=== PATIENT | female | born 1955 | race Caucasian/White ===

== ENCOUNTER 2018-04-05 09:29 | Day surgery (SDC) | payer OTHER ==
[~2018-04-05] VITALS: Ht 167.6 cm; Wt 62.1 kg
[~2018-04-05 09:29] MED LIST: INTE30I SC; OXYACE5T PO; PROM25 PO; TAMS.4ER PO
[2018-04-05] MEDS ORDERED: TECFIDERA240 MG (10:14)
== END 2018-04-05 12:03 | disposition home or self-care (01) ==
LOC: ORSCSDS 09:29
PROVIDERS: Internal Medicine Gastroenterology
PROC: 0DBL8ZX Excision of Transverse Colon, Via Natural or Artificial Opening Endoscopic, Diagnostic (ICD-10-PCS; principal; 2018-04-05 11:00)
DX: Z12.11 Encounter for screening for malignant neoplasm of colon (principal); D12.3 Benign neoplasm of transverse colon; K57.30 Diverticulosis of large intestine without perforation or abscess without bleeding; K64.8 Other hemorrhoids; K64.4 Residual hemorrhoidal skin tags; Z79.899 Other long term (current) drug therapy
CPT/HCPCS: 88305; J7120

== ENCOUNTER 2018-08-14 08:58 | Day surgery (SDC) | payer OTHER ==
[~2018-08-14] VITALS: Ht 167.6 cm; Wt 62.8 kg
[~2018-08-14 08:58] MED LIST changes: +CHOL10002 PO; +MULTI VITAMIN1 EACH PO; +TECFIDERA240 MG; +TECFIDERA240 MG PO
== END 2018-08-14 16:05 | disposition home or self-care (01) ==
LOC: ORSCSDS 08:58
PROVIDERS: Orthopaedic Surgery
PROC: 0PSH04Z Reposition Right Radius with Internal Fixation Device, Open Approach (ICD-10-PCS; principal; 2018-08-14 10:30)
DX: S52.501A Unspecified fracture of the lower end of right radius, initial encounter for closed fracture (principal); G35 Multiple sclerosis; Z79.899 Other long term (current) drug therapy
CPT/HCPCS: C1713; J0690; J2250; J2405; J2795; J3010; J7120

== ENCOUNTER 2022-11-25 09:32 | Day surgery (SDC) | payer MEDICARE, BC ==
[~2022-11-25] VITALS: Ht 167.6 cm; Wt 65.1 kg
[~2022-11-25 09:32] MED LIST changes: +ALEN70 PO; +Calcium Carbon500 MG PO; +MULVITA PO; +VITAMIN D310 MC4 PO; +VUMERITY231 MG PO
--- NOTE | 2022-11-25 10:13 | NUR ---
Ambulatory in Day Surgery. History, Chart, Medications and Allergies reviewed before start of procedure.Lungs clear T/O to Auscultation. Patient confirms NPO status and agrees with scheduled surgery. Pre-Op teaching done. Pt verbalizes understanding. Patient States Post-Procedure ride home has been arranged.
--- NOTE | 2022-11-25 11:36 | NUR ---
11/25/22 1136 Antonia Shine PATIENT RECEIVED AXILLARY NERVE BLOCK DONE BY PRIOR TO PROCEDURE START.
--- NOTE | 2022-11-25 12:32 | NUR ---
PT IS AXO X4 AND COMMUNICATING APPROPRIATELY W STAFF. PT HAS FULL SENSATION IN L HAND W CAP REFILL <3 SEC. PT ON RM AIR. PT REPORTING SORE THROAT BUT DENIES ANY PAIN IN HER LUE. PT DENIES ANY NAUSEA AT THIS TIME.
--- NOTE | 2022-11-25 13:54 | NUR ---
DAY SURGERY DISCHARGE NOTE PT VSS, NO NAUSEA, NO PAIN PT CONTINUES TO HAVE MINIMAL FEELING IN OPERATIVRE ARM S/P BLOCK. PT ABLE TOMOVE FINGERS, BRISK CAPILLARY REFILL IN OPERATIVE ARM, FINGERS WARM AND PINK WITH SIGNIFICANT SWELLING, BRUISING NOTED ON KNUCKLE. DR RENEE VIEWED OPERATIVE ARM POST-OP AND CONFIRMED SWELLING WAS UNCHANGED. DRESSING CDI. PT TOLERATING PO FLUIDS AND FOOD IN DSU. A&OX4. AT BEDSIDE. NO PAIN MEDICATION ADMINISTERED FOR 0/10 PAIN. Patient up to Ambulate independently. Gait steady. Discharge instructions reviewed with patient. Patient verbalizes understanding. Copy given to patient to take home. Discharged via wheelchair to private car for ride home.
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
== END 2022-11-25 13:45 | disposition home or self-care (01) ==
LOC: ORSCMMR 09:32
PROVIDERS: Orthopaedic Surgery
PROC: 0PSJ04Z Reposition Left Radius with Internal Fixation Device, Open Approach (ICD-10-PCS; principal; 2022-11-25 10:30)
DX: S52.572A Other intraarticular fracture of lower end of left radius, initial encounter for closed fracture (principal); W18.39XA Other fall on same level, initial encounter; N18.9 Chronic kidney disease, unspecified; G35 Multiple sclerosis; G47.33 Obstructive sleep apnea (adult) (pediatric); Z79.899 Other long term (current) drug therapy
CPT/HCPCS: C1713; J0690; J1100; J1885; J2250; J2405; J2704; J3010; J7120

== ENCOUNTER 2023-07-11 06:37 | Day surgery (SDC) | payer MEDICARE, BC ==
[~2023-07-11] VITALS: Ht 167.6 cm; Wt 65.3 kg
[2023-07-11 08:52] VITALS: BP 124/71
--- NOTE | 2023-07-11 08:53 | NUR ---
07/11/23 0853 Bree Love IV DISCONTINUED INTACT, WNL. PT TO BE DISCHARGED
== END 2023-07-11 09:19 | disposition home or self-care (01) ==
LOC: ORSCSDS 06:37
PROVIDERS: Internal Medicine Gastroenterology
PROC: 0DJD8ZZ Inspection of Lower Intestinal Tract, Via Natural or Artificial Opening Endoscopic (ICD-10-PCS; principal; 2023-07-11 08:00)
DX: Z12.11 Encounter for screening for malignant neoplasm of colon (principal); Z86.010 Personal history of colon polyps; K64.4 Residual hemorrhoidal skin tags; K57.30 Diverticulosis of large intestine without perforation or abscess without bleeding; G35 Multiple sclerosis; Z79.899 Other long term (current) drug therapy
CPT/HCPCS: J2405; J2704; J7120

== ENCOUNTER 2025-07-31 08:24 | Day surgery (SDC) | payer MEDICARE, BC ==
[~2025-07-31] VITALS: Ht 167.6 cm; Wt 64.6 kg
[~2025-07-31 08:24] MED LIST changes: +CeFAZolin Sodium 2,000 MG VIAL ONE; +Lidocaine 1%-Epineph 1:100000 20 ML MDV ONE; +NS 500 ML IV ONE; +Sodium Bicarb 8.4% 1 MEQ/ML 50 ML Vial ONE
[2025-07-31] MEDS ORDERED: NS 500 ML IV ONE (08:52)
--- NOTE | 2025-07-31 09:01 | NUR ---
07/31/25 0901 Rola Paz TIME OUT PERFORMED AT BEDSIDE WITH DR ANAYA AT 0855 IMMEDIATELY PRIOR TO INJECTION OF 5ML OF SOLUTION CONSISTING OF 9ML 1% LIDOCAINE WITH EPI [id number] AND 1ML 8.4% SODIUM BICARBONATE. PATIENT TOLERATED PROCEDURE WELL.
[2025-07-31 10:06] VITALS: BP 124/78
--- NOTE | 2025-07-31 10:06 | NUR ---
07/31/25 1006 Klarissa Florez REPORT RECEIVED FROM JOHAN AND RN
== END 2025-07-31 10:46 | disposition home or self-care (01) ==
LOC: ORSCSDS 08:24
PROVIDERS: Orthopaedic Surgery
PROC: 0LN70ZZ Release Right Hand Tendon, Open Approach (ICD-10-PCS; principal; 2025-07-31 10:00)
DX: M65.331 Trigger finger, right middle finger (principal); G35.D Multiple sclerosis, unspecified; Z79.899 Other long term (current) drug therapy
CPT/HCPCS: J0690; J2704; J7040

== ENCOUNTER → 2025-08-06 | Outpatient (CLI) | payer MEDICARE, BC ==
[~2025-08-06] MED LIST changes: -CeFAZolin Sodium 2,000 MG VIAL ONE; -Lidocaine 1%-Epineph 1:100000 20 ML MDV ONE; -NS 500 ML IV ONE; -Sodium Bicarb 8.4% 1 MEQ/ML 50 ML Vial ONE
[2025-08-06 19:22] LABS: Alanine Aminotransfer (ALT/SGP 34 U/L (12-78); Albumin, Blood 3.8 g/dL (3.4-5.0); Albumin/Globulin Ratio 1.4 (0.8-1.8); Anion Gap 8 mmol/L (3-11); Aspartate Aminotrans (AST/SGOT 26 U/L (12-37); Bilirubin, Total 0.4 mg/dL (0.1-1.0); Blood Urea Nitrogen 17 mg/dL (8-24); CHOL/HDL RATIO 4.4; CO2, Blood 29 mmol/L (21-32); Calcium, Blood 8.9 mg/dL (8.5-10.1); Chloride, Blood 107 mmol/L (98-108); Cholesterol 228 mg/dL (50-200); Creatinine, Blood 0.80 mg/dL (0.40-1.00); Globulin, Blood 2.8 g/dL (2.2-4.0); Glucose, Blood 86 mg/dL (70-99); HDL Cholesterol 52 mg/dL (>39); LDL/HDL RATIO 2.5; Low Density Lipoprotein Chol 131 mg/dL (0-110); Potassium, Blood 4.0 mmol/L (3.5-5.5); Sodium, Blood 140 mmol/L (136-145); Total Protein, Blood 6.6 g/dL (6.4-8.2); Triglycerides 225 mg/dL (30-160); Very Low Density Lipoprot Chol 45 mg/dL (6-32)
== END | disposition home or self-care (01) ==
LOC: LAB 13:16 → LAB SHORT 13:16
PROVIDERS: Internal Medicine
DX: E78.00 Pure hypercholesterolemia, unspecified (principal); G35.A Relapsing-remitting multiple sclerosis
CPT/HCPCS: 80053; 80061